=== PATIENT | female | born 1985 | race Caucasian/White ===

== ENCOUNTER 2019-10-28 22:04 | Emergency (ER) | payer OTHER ==
[~2019-10-28] VITALS: Ht 175.3 cm; Wt 77.1 kg
[~2019-10-28 22:04] MED LIST: ACETAMINOPHEN-1 EAC1 PO; AUGMENTIN 500-1 EACH PO; AUGMENTIN 875875 M1 PO; CLONAZEPAM; DARVOCET-N 1001 EACH PO; DOXYCYCLINE 10100 MG PO; FLONASE 0.05%50 MCG NS; IBUPROFEN 600600 M1 PO; IBUPROFEN 800800 M1 PO; IBUPROFEN 800800 MG PO; LISINOPRIL; LITHIUM; NAPROSYN500 MG PO; NORCO 7.5-3251 EACH PO; PENICILLIN VK500 MG PO; PERIDEX 0.12%473 M1 SSP; PROZAC; RISPERDAL; RISPERDAL 1 MG T1 MG PO; SEPTRA DS TABL1 EACH; ULTRAM; ZOLOFT; ZOLOFT100 MG PO
[2019-10-29 01:00] LABS: ABSOLUTE BASOPHILS 0.1 thou/uL (0.0-0.2); ABSOLUTE EOSINOPHILS 0.2 thou/uL (0.0-0.7); ABSOLUTE NEUTROPHILS 8.6 thou/uL (1.6-8.1); BASOPHILS 0.8 %; EOSINOPHILS 1.7 %; HEMATOCRIT 41.7 % (37.0-47.0); HEMOGLOBIN 14.2 gm/dL (12.0-15.0); LYMPHOCYTES 23.1 %; MCH 29.6 pg (26.0-34.0); MONOCYTES 7.5 %; MPV 9.3 fl. (7.2-11.1); NUCLEATED RBCS 0 /100WBC; PLATELET COUNT* 276 thou/uL (150-400); POLYS 66.9 %; RBC 4.79 mil/uL (4.20-5.00); RDW-CV 12.9 % (10.5-14.5); WBC 12.8 thou/uL (4.0-11.0)
[2019-10-29 01:08] LABS: CALCIUM 8.7 mg/dL (8.5-10.1); CREATININE 0.8 mg/dL (0.6-1.3); POTASSIUM 3.6 mmol/L (3.5-5.1)
[2019-10-29 01:12] LABS: ALBUMIN 3.5 g/dL (3.4-5.0); TOTAL BILIRUBIN 0.8 mg/dL (<0.1-1.0); TOTAL PROTEIN 6.8 g/dL (6.4-8.2)
[2019-10-29 01:35] LABS: PROTIME 10.7 Seconds (9.20-11.50)
[2019-10-29 01:47] LABS: URINE BLOOD NEGATIVE (Negative); URINE CLARITY CLEAR; URINE COLOR YELLOW; URINE GLUCOSE-RANDOM NEGATIVE (Negative); URINE KETONES NEGATIVE (Negative); URINE LEUKOCYTES-REFLEX TRACE (Negative); URINE PROTEIN TRACE (Negative); URINE SPECIFIC GRAVITY >= 1.030 (1.005-1.030)
[2019-10-29 01:50] LABS: URINE BILIRUBIN 1+ (Negative); URINE NITRITE-REFLEX POSITIVE (Negative)
[2019-10-29 01:51] LABS: ICTOTEST (BILI CONFIRMATORY) Negative (Negative)
[2019-10-29 01:55] LABS: AMP/METHAMP POSITIVE (Negative); BARBITURATES Negative (Negative); BENZODIAZEPINES POSITIVE (Negative); COCAINE Negative (Negative); METHADONE Negative (Negative); OPIATES Negative (Negative); PCP Negative (Negative); THC POSITIVE (Negative)
[2019-10-29 02:12] LABS: BACTERIA-REFLEX >30 Many /HPF (None Seen); CASTS None Seen /LPF (None Seen); CRYSTALS None Seen /LPF (None Seen); MUCUS 0-3 Light strn/LPF (None Seen); SQUAMOUS 0-3 Few /LPF (0-3); URINE RBC 3-10 Few /HPF (0-2); URINE WBC-REFLEX 6-15 Few /HPF (0-5)
[2019-10-29 04:04] VITALS: BP 122/74
== END 2019-10-29 03:55 | disposition short-term general hospital (02) ==
LOC: M.ERS 22:04
PROVIDERS: Emergency Medicine
DX: S12.600A Unspecified displaced fracture of seventh cervical vertebra, initial encounter for closed fracture (principal); N39.0 Urinary tract infection, site not specified; M25.512 Pain in left shoulder; M54.6 Pain in thoracic spine; F31.9 Bipolar disorder, unspecified; Z90.49 Acquired absence of other specified parts of digestive tract; Z88.1 Allergy status to other antibiotic agents; Z88.2 Allergy status to sulfonamides; V89.2XXA Person injured in unspecified motor-vehicle accident, traffic, initial encounter; Y93.89 Activity, other specified; Y92.89 Other specified places as the place of occurrence of the external cause; Y99.8 Other external cause status

== ENCOUNTER 2021-02-04 07:37 | Emergency (ER) | payer OTHER ==
[~2021-02-04] VITALS: Ht 175.3 cm; Wt 90.7 kg
[2021-02-04 07:51] VITALS: BP 157/104
[2021-02-04] MEDS ORDERED: AMOXICILLIN 50500 MG PO (09:01)
[2021-02-04] MEDS ORDERED: IBUPROFEN 800800 MG PO (09:01)
== END 2021-02-04 09:06 | disposition home or self-care (01) ==
LOC: M.ERS 07:37
DX: K02.9 Dental caries, unspecified (principal); R05.9 Cough, unspecified; F31.9 Bipolar disorder, unspecified; F17.210 Nicotine dependence, cigarettes, uncomplicated; Z90.89 Acquired absence of other organs; Z88.2 Allergy status to sulfonamides